=== PATIENT | female | born 1965 | race African-American/Black ===

== ENCOUNTER 2021-11-09 10:32 | Emergency (ER) | payer OTHER ==
[2021-11-09 10:37] VITALS: BP 147/89; PULSE 82; RESP 18; TEMP 98.5
[2021-11-09] MEDS ORDERED: HYDROcodone/APAP 5-325MG 1 EACH TAB PO STA (11:28)
--- NOTE | 2021-11-09 11:32 | ED ---
General Adult HPI - General Chief complaint: Extremity Injury, Lower Stated complaint: toe injury Time Seen by Provider: 11/09/21 11:25 Source: patient, RN notes reviewed Mode of arrival: wheelchair Limitations: no limitations - History of Present Illness Initial comments: 56-year-old well-appearing female presents to the emergency room after catching her right little toe on the corner of the wall last night. She states that she has had increased pain to her little toe with bruising to the top of her foot. She states it is worse with ambulation and movement. She states pain worse with ambulation. There is bruising to the dorsal aspect of the foot at the base of the fourth and fifth digits. She has no numbness or tingling. There are no open wounds. -: days(s) (1) Location: right, lower extremity (fifth toe and foot) Radiation: non-radiation, proximal (foot with weight bearing) Quality: aching, other (shooting) Consistency: constant Improves with: immobilization Worsens with: movement, other (ambulation) Associated Symptoms: denies other symptoms - Related Data Home Medications Medication Instructions Recorded Confirmed Baclofen 10 mg PO HS 08/09/14 01/19/16 DULoxetine HCL [Cymbalta] 60 mg PO BID 08/09/14 01/19/16 Levothyroxine Sodium [Synthroid] 25 mcg PO DAILY 08/09/14 01/19/16 Metoprolol Tartrate [Lopressor] 25 mg PO BID 08/09/14 01/19/16 Morphine Sulfate [Morphine Sulfate 60 mg PO Q12HR 08/09/14 01/19/16 ER] Naproxen 500 mg PO Q12HR PRN 08/09/14 01/19/16 Oxybutynin Xl [Ditropan XL] 5 mg PO DAILY 08/09/14 01/19/16 Topiramate [Topamax] 100 mg PO BID 08/09/14 01/19/16 Zolpidem [Ambien] 10 mg PO HS 08/09/14 01/19/16 busPIRone HCl [Buspar] 10 mg PO BID 08/09/14 01/19/16 lisinopriL [Prinivil] 20 mg PO DAILY 08/09/14 01/19/16 oxyCODONE-APAP 7.5-325MG [Percocet 1 each PO BID 08/09/14 01/19/16 7.5-325 mg] ALPRAZolam [Xanax] 0.5 mg PO BID PRN 02/18/15 01/19/16 Previous Rx's Medication Instructions Recorded predniSONE [Deltasone] 20 mg PO BID #8 tab 12/16/15 Albuterol Inhaler (Mhu) [Ventolin 1 - 2 puff INHALATION Q4-6H PRN #1 01/19/16 Hfa Inhaler (Mhu)] inhaler predniSONE 50 mg PO DAILY #5 tab 01/19/16 Allergies Allergy/AdvReac Type Severity Reaction Status Date / Time ibuprofen [From Motrin] AdvReac Nausea & Verified 11/09/21 10:37 Vomiting Review of Systems ROS Statement: Those systems with pertinent positive or pertinent negative responses have been documented in the HPI. ROS Other: All systems not noted in ROS Statement are negative. Past Medical History Past Medical History: Fibromyalgia, GERD/Reflux, Hypertension, Rheumatoid Arthritis (RA), Seizure Disorder Additional Past Medical History / Comment(s): migraines, Lupus History of Any Multi-Drug Resistant Organisms: None Reported Past Surgical History: Back Surgery, Cholecystectomy, Hysterectomy, Orthopedic Surgery Additional Past Surgical History / Comment(s): katya arthroscopic knees, left carpal tunnel, neck fusion, total hip replacement Past Anesthesia/Blood Transfusion Reactions: No Reported Reaction Past Psychological History: Depression Smoking Status: Never smoker Past Alcohol Use History: None Reported Past Drug Use History: None Reported General Exam Limitations: no limitations General appearance: alert, in no apparent distress Eye exam: Present: normal appearance, EOMI Neck exam: Present: normal inspection. Absent: tenderness, meningismus, lymphadenopathy Respiratory exam: Present: normal lung sounds bilaterally. Absent: respiratory distress, wheezes, rales, rhonchi, stridor Cardiovascular Exam: Present: regular rate, normal rhythm, normal heart sounds. Absent: systolic murmur, diastolic murmur, rubs, gallop, clicks Extremities exam: Present: normal inspection, full ROM, normal capillary refill. Absent: tenderness, pedal edema, joint swelling, calf tenderness Right Foot/Toe exam: Present: tenderness, ecchymosis (Fly of the fourth and fifth digits dorsal surface). Absent: swelling, calcaneal tenderness, tenderness at base of 5th metatarsal Neurovascular tendon exam: Present: no vascular compromise Neurological exam: Present: alert, oriented X3 Psychiatric exam: Present: normal affect, normal mood Skin exam: Present: warm, dry, intact, normal color. Absent: rash Course Vital Signs 11/09/21 10:34 Temperature 98.5 F Pulse Rate 82 Respiratory 18 Rate Blood Pressure 147/89 O2 Sat by Pulse 99 Oximetry Medical Decision Making - Medical Decision Making 56-year-old well-appearing female presents to the emergency room after catching her right little toe on the corner of the wall last night. She states it is worse with ambulation and movement. There are no open wounds. There is a fracture at the base of the proximal phalanx fifth right digit. Patient given prescription for crutches and an ortho shoe, directed to follow-up with orthopedics or podiatry. She states she has one in [place] where she lives. Directed take Tylenol as she states she is unable to take Motrin. Rest, ice, elevate at home. Disposition Clinical Impression: Toe fracture, right Clinical Impression: (Ruled Out): Foot fracture, right Disposition: HOME SELF-CARE Condition: Good Instructions (If sedation given, give patient instructions): Toe Fracture (ED) Additional Instructions: Rest, ice, elevate and wear ortho shoe. Use crutches until seen by orthopedics or podiatry. Tylenol as needed for pain. Is patient prescribed a controlled substance at d/c from ED?: No Referrals: Nonstaff,Physician [Primary Care Provider] - 1-2 days Justo Thomas DPM [STAFF PHYSICIAN] - 1-2 days Time of Disposition: 12:13
--- NOTE | 2021-11-09 11:46 | XR ---
EXAMINATION TYPE: XR foot complete RT DATE OF EXAM: 11/09/2021 COMPARISON: None HISTORY: Fifth toe pain TECHNIQUE: 3 view right foot FINDINGS: Hallux valgus repair is evident. There is a transverse fracture of the base of the proximal phalanx fifth digit. No additional fractur es are evident. There is valgus deformity of the distal phalanx second digit. Soft tissues are normal . IMPRESSION: 1. Fracture at the base of the proximal phalanx fifth right foot digit.
[2021-11-09] MEDS ORDERED: ACET/COD 300 MG/30 MG STARTER PACK 6 TAB BTL PO STA (12:13)
== END 2021-11-09 12:29 | disposition home or self-care (01) ==
LOC: EC 10:32
DX: S92.511A Displaced fracture of proximal phalanx of right lesser toe(s), initial encounter for closed fracture (principal); I10 Essential (primary) hypertension; K21.9 Gastro-esophageal reflux disease without esophagitis; M79.7 Fibromyalgia; M06.9 Rheumatoid arthritis, unspecified; G40.909 Epilepsy, unspecified, not intractable, without status epilepticus; G43.909 Migraine, unspecified, not intractable, without status migrainosus; Z88.6 Allergy status to analgesic agent; Z79.899 Other long term (current) drug therapy; W22.01XA Walked into wall, initial encounter; Y93.89 Activity, other specified; Y92.009 Unspecified place in unspecified non-institutional (private) residence as the place of occurrence of the external cause
CPT/HCPCS: 99283

== ENCOUNTER 2021-11-21 14:49 | Emergency (ER) | payer OTHER ==
[2021-11-21 15:00] VITALS: BP 130/88; PULSE 91; RESP 20; TEMP 98.7
[2021-11-21] MEDS ORDERED: ACETAMINOPHEN TAB 500 MG TAB PO STA (15:05)
--- NOTE | 2021-11-21 16:15 | XR ---
EXAMINATION TYPE: XR foot complete RT DATE OF EXAM: 11/21/2021 COMPARISON: 11/09/2021 HISTORY: Little toe pain TECHNIQUE: 3 views FINDINGS: There is nondisplaced fracture of the base of the little toe proximal phalanx. There is no dislocation. Fracture line is still visible. There is screws fixing old osteotomy of the first metata rsal shaft. IMPRESSION: Nondisplaced fracture of the base of the proximal phalanx of the little toe right foot wi thout change in position.
--- NOTE | 2021-11-21 16:17 | ED ---
General Adult HPI - General Chief complaint: Extremity Injury, Lower Stated complaint: Painful toe/Rt Foot Time Seen by Provider: 11/21/21 15:02 Source: patient, RN notes reviewed Mode of arrival: ambulatory Limitations: no limitations - History of Present Illness Initial comments: 56-year-old female with a past medical history of fibromyalgia, lupus, h ypertension, GERD, migraines, RA presents to the emergency room for right foot pain. Patient states she broke her pinky toe a couple weeks ago. Patient states she hit it again against her grand child's shoe and it started hurting. Patient states it is also still bruised which concerned her. Patient has not followed up for this. She does have a fracture shoe in place. Patient has no other complaints at this time including shortness of breath, chest pain, abdominal pain, nausea or vomiting, headache, or visual changes. - Related Data Home Medications Medication Instructions Recorded Confirmed Baclofen 10 mg PO HS 08/09/14 01/19/16 DULoxetine HCL [Cymbalta] 60 mg PO BID 08/09/14 01/19/16 Levothyroxine Sodium [Synthroid] 25 mcg PO DAILY 08/09/14 01/19/16 Metoprolol Tartrate [Lopressor] 25 mg PO BID 08/09/14 01/19/16 Morphine Sulfate [Morphine Sulfate 60 mg PO Q12HR 08/09/14 01/19/16 ER] Naproxen 500 mg PO Q12HR PRN 08/09/14 01/19/16 Oxybutynin Xl [Ditropan XL] 5 mg PO DAILY 08/09/14 01/19/16 Topiramate [Topamax] 100 mg PO BID 08/09/14 01/19/16 Zolpidem [Ambien] 10 mg PO HS 08/09/14 01/19/16 busPIRone HCl [Buspar] 10 mg PO BID 08/09/14 01/19/16 lisinopriL [Prinivil] 20 mg PO DAILY 08/09/14 01/19/16 oxyCODONE-APAP 7.5-325MG [Percocet 1 each PO BID 08/09/14 01/19/16 7.5-325 mg] ALPRAZolam [Xanax] 0.5 mg PO BID PRN 02/18/15 01/19/16 Previous Rx's Medication Instructions Recorded predniSONE [Deltasone] 20 mg PO BID #8 tab 12/16/15 Albuterol Inhaler (Mhu) [Ventolin 1 - 2 puff INHALATION Q4-6H PRN #1 01/19/16 Hfa Inhaler (Mhu)] inhaler predniSONE 50 mg PO DAILY #5 tab 01/19/16 Allergies Allergy/AdvReac Type Severity Reaction Status Date / Time ibuprofen [From Motrin] AdvReac Nausea & Verified 11/21/21 15:00 Vomiting Review of Systems ROS Statement: Those systems with pertinent positive or pertinent negative responses have been documented in the HPI. ROS Other: All systems not noted in ROS Statement are negative. Past Medical History Past Medical History: Fibromyalgia, GERD/Reflux, Hypertension, Rheumatoid Arthritis (RA), Seizure Disorder Additional Past Medical History / Comment(s): migraines, Lupus History of Any Multi-Drug Resistant Organisms: None Reported Past Surgical History: Back Surgery, Cholecystectomy, Hysterectomy, Orthopedic Surgery Additional Past Surgical History / Comment(s): katya arthroscopic knees, left carpal tunnel, neck fusion, total hip replacement Past Anesthesia/Blood Transfusion Reactions: No Reported Reaction Past Psychological History: Depression Smoking Status: Never smoker Past Alcohol Use History: None Reported Past Drug Use History: None Reported General Exam Limitations: no limitations General appearance: alert, in no apparent distress Head exam: Present: atraumatic Eye exam: Present: normal appearance, PERRL, EOMI. Absent: scleral icterus, conjunctival injection ENT exam: Present: normal exam, mucous membranes moist Neck exam: Present: normal inspection, full ROM. Absent: tenderness Respiratory exam: Present: normal lung sounds bilaterally. Absent: respiratory distress, wheezes Cardiovascular Exam: Present: regular rate, normal rhythm, normal heart sounds Extremities exam: Present: normal capillary refill (Capillary refill less than 2 seconds right fifth toe), other (Patient has ecchymosis and mild in nature noted to the MTP joint of the fourth and fifth tarsals of the dorsal right foot. Tenderness to the base of the proximal phalanx of the right fifth toe). Absent: full ROM (patient has pain with flexion and extension of the right fifth toe but is able to do both mechanisms.) Course Vital Signs 11/21/21 14:58 Temperature 98.7 F Pulse Rate 91 Respiratory 20 Rate Blood Pressure 130/88 O2 Sat by Pulse 99 Oximetry Medical Decision Making - Medical Decision Making X-ray of the right foot shows a 96 fracture of the base of the proximal phalanx of the little toe right foot. No change of position. Patient already has a fracture shoe. Patient will be referred to follow up with orthopedics or primary care. Patient can take her home pain medications. She will return here for any worsening symptoms. Patient is requesting Tylenol 3 starter pack however I do not feel this is appropriate management of narcotics. She received a starter pack at previous visit and has no change in fracture. She will need to follow up with orthopedics and take Tylenol for pain. Disposition Clinical Impression: Toe fracture, right Disposition: HOME SELF-CARE Condition: Good Instructions (If sedation given, give patient instructions): Toe Fracture (ED) Additional Instructions: Please follow-up with orthopedics in one to 2 days. Return to the emergency room for any worsening symptoms. Is patient prescribed a controlled substance at d/c from ED?: No Referrals: Denver Gilliam MD [STAFF PHYSICIAN] - 1-2 days Time of Disposition: 16:19
== END 2021-11-21 16:53 | disposition home or self-care (01) ==
LOC: EC 14:49
DX: S92.534A Nondisplaced fracture of distal phalanx of right lesser toe(s), initial encounter for closed fracture (principal); I10 Essential (primary) hypertension; M79.7 Fibromyalgia; K21.9 Gastro-esophageal reflux disease without esophagitis; M06.9 Rheumatoid arthritis, unspecified; G43.909 Migraine, unspecified, not intractable, without status migrainosus; G40.909 Epilepsy, unspecified, not intractable, without status epilepticus; Z88.6 Allergy status to analgesic agent; Z79.899 Other long term (current) drug therapy; W22.8XXA Striking against or struck by other objects, initial encounter; Y92.009 Unspecified place in unspecified non-institutional (private) residence as the place of occurrence of the external cause
CPT/HCPCS: 99283